=== PATIENT | male | born 1980 | race Asian ===

== ENCOUNTER 2018-12-21 20:36 | Emergency (ER) | payer SELFPAY ==
[2018-12-21] MEDS ORDERED: DUONEB *Not for PRN Use IH ONE ×2 (20:43→20:48)
[2018-12-21 20:44] VITALS: BP 133/67
== END 2018-12-22 01:50 | disposition left against medical advice (07) ==
LOC: ED 20:36
DX: R06.00 Dyspnea, unspecified (principal); Z53.21 Procedure and treatment not carried out due to patient leaving prior to being seen by health care provider